=== PATIENT | female | born 2005 | race Caucasian/White ===

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

== ENCOUNTER 2024-01-17 17:40 | Emergency (ER) | payer OTHER, SELFPAY ==
[2024-01-17 17:48] VITALS: BP 101/79; PULSE 113; RESP 20; TEMP 37.4; O2SAT 99
--- NOTE | 2024-01-17 18:17 | ED.URI ---
HPI - URI/Sore Throat General Chief Complaint: Upper Respiratory Infection Stated Complaint: SORE THROAT/VOMITING/CONGESTION Time Seen by Provider: 01/17/24 17:58 Source: patient and RN notes reviewed Mode of arrival: ambulatory Limitations: no limitations History of Present Illness HPI Narrative: Patient presents today complaining of a 1 episode of vomiting, sore throat, nasal congestion, fever up to 100.2, with intermittent nausea. Symptoms began today. She has been able to keep down food and drink since the vomiting episode early this morning. Currently rates her pain 3/10 and has been taking DayQuil with some relief. Denies known sick contacts. Related Data Home Medications Medication Instructions Recorded Confirmed No Home Medications 01/17/24 01/17/24 Allergies Allergy/AdvReac Type Severity Reaction Status Date / Time tree nut Allergy Severe Anaphylaxis Verified 01/17/24 18:13 iohexol Allergy Swelling Verified 01/17/24 18:13 [From contrast - CT, X-RAY] Review of Systems Review of Systems: CONSTITUTIONAL: Denies body aches, chills, or sweats.+ fever EYES: Denies visual changes, redness, or discharge. ENT: Denies rhinorrhea, or otalgia.+ sore throat, congestion CARDIOVASCULAR: Denies chest pain, palpitations, or edema. RESPIRATORY: Denies cough or dyspnea. GASTROINTESTINAL: Denies abdominal pain, or diarrhea.+ nausea, vomiting GENITOURINARY: Denies dysuria or hematuria. SKIN: Denies rash, itching, or wounds. MUSCULOSKELETAL: Denies back pain, joint pain, or myalgia. NEUROLOGIC: Denies headache, numbness, tingling, or weakness. PSYCH: Denies depression or anxiety. PMFSH Comments At time of signature, I have reviewed and agree with nursing past medical, surgical, social and family history unless otherwise noted. Please see nursing chart for further information. There is no relevant family history pertinent to the presenting complaint Exam Narrative: GENERAL: Well-appearing, well-nourished, and in no acute distress. HEAD: Normocephalic, atraumatic. EYES: EOMI. No redness or drainage. Conjunctivae normal. ENT: Mucous membranes pink and moist. Nares congestive. No rhinorrhea. TMs normal bilaterally. Throat normal. Uvula midline. NECK: Normal AROM. Supple. No lymphadenopathy. CHEST: No respiratory distress. Clear to auscultation. HEART: Regular rate and rhythm. No murmur appreciated. EXTREMITIES: Normal range of motion. No edema. SKIN: Warm, dry, no rash. Capillary refill normal. Normal skin turgor. NEURO: No focal deficits. Alert and oriented x3. Gait steady. PSYCH: Normal affect. No signs of depression or anxiety. Course Course Level of Care: Express Care Visit Vital Signs Vital signs: Vital Signs Temperature 99.3 F 01/17/24 17:48 Pulse Rate 113 H 01/17/24 17:48 Respiratory Rate 20 01/17/24 17:48 Blood Pressure 101/79 01/17/24 17:48 Pulse Oximetry 99 01/17/24 17:48 Temperature 99.3 F 01/17/24 17:48 Pulse Rate 113 H 01/17/24 17:48 Respiratory Rate 20 01/17/24 17:48 Blood Pressure 101/79 01/17/24 17:48 Pulse Oximetry 99 01/17/24 17:48 Review MDM - URI/Sore Throat MDM Narrative Medical decision making narrative: Rapid strep negative. Culture pending. Symptoms likely viral in etiology. Patient declines prescription for antiemetic. Anticipatory guidance given. Differential Diagnosis Differential diagnosis: Likely upper respiratory infection, viral infection, pharyngitis and other (Strep throat) Lab Data Attestation: I reviewed the patient's lab results. Labs: Strep Screen Presumptive Negative *(Reference Range: Negative)* Critical Care Time Critical Care Time Critical Care Time: No Discharge Plan Discharge Clinical Impression: Viral syndrome Patient Disposition: Home, Self-Care Condition: Stable Instructions: Viral Syndrome (ED) Additional I
== END 2024-01-17 18:33 | disposition home or self-care (01) ==
PROVIDERS: Emergency Provider Nurse Practitioner; PCP Pediatrics
DX: B34.9 Viral infection, unspecified (principal)
CPT/HCPCS: 87081; 87880; 99213; G0463

== ENCOUNTER 2025-03-22 14:57 | Outpatient (CLI) | payer OTHER, SELFPAY ==
--- OUTSIDE RECORDS SUMMARY | 2025-03-22 15:03 | XMS_ITS | Clinical Summary ---
Author Organization [facility] [employer] Address [address] [place] [address] Care Team Providers Care Fire And Safety Helper Name Role Phone Mykel Hernandez MD Primary Care Provider [phone] Source Comments [facility],non-owned Affiliates and Associated Physician Practices is amultiple site organization consisting of ambulatory clinics and hospital sitesin [place], [place], [place] and [place]. This disclosure is being madepursuant to the Care Everywhere program and may not contain all information available regarding this patient. Last updated 18.[facility] [employer] Allergies Active Allergy Reactions Criticality Noted Date Comments Tree Nuts Rash Low 01/09/2011 Rash and vomiting; has Epi pen Medications * Be aware that medications may not be up to date on this document. Alwaysverify current medications with the patient. No known medications Active Problems Problem Noted Date Diagnosed Date Closed fracture of left distal radius 10/21/2018 Closed fracture of right distal radius 7 GERD (gastroesophageal reflux disease) 1 Abdominal pain 10/31/2010 Overview (06/23/2015): Weight loss 10/31/2010 Family History Medical History Relation Name Comments Anesthesia Reaction Father GERD - Gastroesophageal Reflux Disease Father rarely Cirrhosis Maternal Grandfather GERD - Gastroesophageal Reflux Disease Maternal Grandm other Anesthesia Reaction Mother GERD - Gastroesophageal Reflux Disease Mother GERD - Gastroesophageal Reflux Disease Paternal Grandm other Cirrhosis Paternal Uncle Anesthesia Reaction Sister Celiac Disease Neg Hx Crohn's Disease Neg Hx Ulcerative Colitis Neg Hx Relation Name Status Comments Father Alive Maternal Grandfather Maternal Grandmother Mother Alive Paternal Grandmother Paternal Uncle Sister Alive Social History Tobacco Use Types Packs/Day Years Used Date Smoking Tobacco: Never Smokeless Tobacco: Never Alcohol Use Standard Drinks/Week Comments No 0 (1 standard drink = 0.6 oz pur e alcohol) Comments Unknown Sex and Gender Information Value Date Recorded Sex Assigned at Not on file 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 Gender Identity Not on file Sexual Orientation Not on file Last Filed Vital Signs Vital Sign Reading Time Taken Comments Blood Pressure 118/78 12/02/2019 2:21 PM CDT Pulse 84 12/02/2019 2:21 PM CDT Temperature 37.2 C (98.9 F) 12/02/2019 2:21 PM CDT Respiratory Rate 16 12/02/2019 2:21 PM CDT Oxygen Saturation 98% 12/02/2019 2:21 PM CDT Inhaled Oxygen Concentration - - Weight 64 kg (141 lb) 12/02/2019 2:21 PM CDT Height 177.8 cm (5' 10) 12/02/2019 2:21 PM CDT Body Mass Index 20.23 12/02/2019 2:21 PM CDT Plan of Treatment Health Maintenance Due Date Last Done Comments HIV SCREENING 2019 HPV VACCINE (1 - 3-dose series) 2019 CHLAMYDIA/GONORRHEA SCREENING 2020 MENINGOCOCCAL (Group B) VACC INE SHARED DECISION-MAKING (1 of 2 - Standard) 2020 HEPATITIS C SCREENING 11/16/2022 DTAP/TDAP/TD VACCINES (1 - Tdap) 2023 HEPATITIS B VACCINE (1 of 3 - 19+ 3-dose series) 2023 COVID-19 VACCINE (1 - 2023-2 5 season) 2024 DEPRESSION SCREENING 09/23/2024 INFLUENZA VACCINE (Season Ended) 2025 ZOSTER VACCINE (1 of 2) 2054 HIB VACCINE Aged Out No longer eligi ble based on patient's age to complete this topic MENINGOCOCCAL GROUPS A/C/Y/W VACCINE Aged Out No longer eligible b ased on patient's age to complete this topic PNEUMOCOCCAL VACCINE Aged Out No long er eligible based on patient's age to complete this topic Insurance [employer] Care Teams Fire And Safety Helper Relationship Specialty Start Date End Date Mykel Hernandez MD [address] [place] [address] PCP - General 10/31/10
--- OUTSIDE RECORDS SUMMARY | 2025-03-22 15:03 | XMS_ITS | Clinical Summary ---
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 Operator Helper Name Role Phone Adam Hernandez MD Primary Care Provider Allergies Active Allergy Reactions Criticality Noted Date Comments Ibuprofen Other (See comments) Low 06/27/2022 Reaction: Tree Nut Other (See comments) Low 06/27/2022 Reaction: Tree Nuts Rash Medium 01/09/2011 Rash and vomiting; has Epi pen Medications EPINEPHrine 0.3 mg/0.3 mL auto-injection syringe 05/13/2022 Active Active Problems Problem Noted Date Diagnosed Date Closed fracture of left distal radius 10/21/2018 Closed fracture of right distal radius 7 Chronic tonsillitis 12/23/2015 Abdominal pain 10/31/2010 Overview (05/19/2022): GERD (gastroesophageal reflux disease) 1 Weight loss 10/31/2010 Atopic eczema 05/21/2008 Allergy to nuts 05/21/2008 Immunizations Immunization Administration Dates Next Due HPV9 09/03/2016,05/02/2016,02/28/2016 Influenza, Quadrivalent, Spl it, Preservative Free, Intramuscular 09/24/2018,09/03/2016 Influenza, Trivalent, IM (MDV) 08/14/2014 Meningococcal A,C,W,Y-TT (Aka Menquadfi) 021 Meningococcal MCV4P (Menactra) 02/28/2016 Tdap 02/28/2016 Surgical History Surgery Date Site/Laterality Comments TONSILECTOMY, ADENOIDECTOMY, BILATERAL MYRINGOTOMY AND TUBES Medical History Medical History Date Comments PANDAS (pediatric autoimmune neuropsychiatric disease associated with streptococcal infection) Family History Medical History Relation Name Comments Allergic rhinitis Father Family his tory of allergic rhinitis - (Added by TW Conv) Allergic rhinitis Mother Family his tory of allergic rhinitis - (Added by TW Conv) Relation Name Status Comments Father Alive Mother Alive Social History Tobacco Use Types Packs/Day Years Used Date Smoking Tobacco: Never Smokeless Tobacco: Never Comments Unknown Sex and Gender Information Value Date Recorded Sex Assigned at Not on file 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 Gender Identity Not on file Sexual Orientation Not on file Obstetrics History Last Filed Vital Signs Vital Sign Reading Time Taken Comments Blood Pressure 126/62 12/11/2024 9:42 AM CDT Pulse 111 12/11/2024 9:42 AM CDT Temperature 37 C (98.6 F) 05/19/2022 9:26 AM CDT Respiratory Rate 14 05/19/2022 9:26 AM CDT Oxygen Saturation 99% 12/11/2024 9:42 AM CDT Inhaled Oxygen Concentration - - Weight 70.8 kg (156 lb) 12/11/2024 9:42 AM CDT Height 179.1 cm (5' 10.5) 12/11/2024 9:42 AM CD T Body Mass Index 22.07 12/11/2024 9:42 AM CDT Plan of Treatment Health Maintenance Due Date Last Done Comments Depression Screening 2004 Hepatitis C Screening 2004 Varicella Vaccines (1 of 2 - 13+ 2-dose series) 2017 Meningococcal B Vaccine (1 o f 2 - Standard) 2020 Hepatitis B Screening 2022 Regular Well Visit/Exam 18-64 2022 Influenza Vaccine (Season Ended) 2025 09/24/2018, 09/03/2016, 08/14/2014 DTaP/Tdap/Td Vaccine (2 - Td or Tdap) 02/27/2026 02/28/2016 HPV Vaccines Completed 09/03/2016, 05/02/2016, 02/28/2016 Meningococcal Vaccine Completed 05/11/2021 , 02/28/2016 Pneumococcal vaccine <65 Aged Out No longer eligible based on patient's age to complete this topic Insurance CIGNA CIGNA CIGNA Care Teams Car Dumper Operator Helper Relationship Specialty Start Date End Date Adam Hernandez MD [address] [place], [place] [id number] PCP - General Pediatrics 05/25/22
--- OUTSIDE RECORDS SUMMARY | 2025-03-22 15:03 | XMS_ITS | Referral Summary ---
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
[2025-03-22 16:11] LABS: Beta HCG Quantitative < 2.39 mIU/ML
== END 2025-03-22 14:58 | disposition home or self-care (01) ==
LOC: ANHLAB 14:59
PROVIDERS: PCP Pediatrics; Visit Provider Obstetrics & Gynecology
DX: N92.6 Irregular menstruation, unspecified (principal)
CPT/HCPCS: 36415; 84702

== ENCOUNTER 2025-04-22 12:55 | Outpatient (CLI) | payer OTHER, SELFPAY ==
--- NOTE | ~2025-04-22 | MR_ITS ---
MRI of the abdomen: Clinical indication: Unicornuate uterus, abdominal pain. Technique: Coronal SSFSE ARC, WATER:coronal LAVA-FLEX, Coronal 2D FIESTA FatSat, Axial SSFSE BH ARC, Axial 3D DualEcho BH, Axial SSFSE-IR, Axial DWI b=500, Axial 2D FIESTA FatSat, pre and dynamic postco ntrast Axial LAVA ARC, postcontrast Coronal In and Opposed phase LAVA FLEX. Following intravenous adm inistration of 14 cc MultiHance gadolinium, T1-weighted fat-sat imaging was performed in the axial an d coronal planes. Findings: Gallbladder is unremarkable. The common bile duct is normal in course and caliber. No filli ng defects are seen within the CBD. No evidence of intrahepatic biliary ductal dilatation. The pancre atic duct is normal in size. Liver, spleen, pancreas, adrenals, kidneys appear normal. The aorta and the paraaortic regions appear normal. Impression: Unremarkable exam. Reviewed, dictated and finalized at location . Impression: Unremarkable exam.
--- NOTE | ~2025-04-22 | MR_ITS ---
MRI of the pelvis CLINICAL HISTORY: Unicornuate uterus, heavy menses TECHNIQUE: Sagittal T2 images, axial T1-weighted in phase and out of phase images, T2-weighted images , and T2 fat-sat images, and coronal T2-weighted images were performed. Following intravenous adminis tration of 14 cc MultiHance gadolinium, T1-weighted fat-sat imaging was performed in the axial and co andrew planes. IMPRESSION: Uterus is anteverted, possible unicornuate morphology extending towards left side. No junctional zone thickening. No suspicious myometrial mass or abnormal endometrial thickening. 3 cm probable right ov diane cyst present. Subcentimeter follicular cysts are present in the left ovary. Urinary bladder unremarkable. No ascites. No pelvic lymphadenopathy identified. Visualized bowel loop s are unremarkable. IMPRESSION: Suggestion of a unicornuate uterus, extending towards left side. 3 cm right ovarian cyst. Reviewed, dictated and finalized at [facility]. IMPRESSION: Uterus is anteverted, possible unicornuate morphology extending towards left si de. No junctional zone thickening. No suspicious myometrial mass or abnormal en dometrial thickening. 3 cm probable right ovarian cyst present. Subcentimeter f ollicular cysts are present in the left ovary. Urinary bladder unremarkable. No ascites. No pelvic lymphadenopathy identified. Visualized bowel loops are unremarkable.
== END 2025-04-22 12:56 | disposition home or self-care (01) ==
LOC: MICIMG 12:56
PROVIDERS: PCP Pediatrics; Visit Provider Obstetrics & Gynecology
DX: Q51.4 Unicornate uterus (principal); N83.201 Unspecified ovarian cyst, right side
CPT/HCPCS: 72197; 74183; A9577

== ENCOUNTER 2025-05-05 16:51 | Emergency (ER) | payer OTHER, SELFPAY ==
--- NOTE | 2025-05-05 16:52 | ED_ITS ---
HPI - General Adult General Chief complaint: Upper Respiratory Infection Stated complaint: fever, cough Time Seen by Provider: 05/05/25 16:52 Source: patient Mode of arrival: ambulatory Limitations: no limitations History of Present Illness HPI narrative: Pt is a 19 y/o female presenting with c/o fever, cough. She also reports burning sensation in chest with coughing, swallowing. Sx began 2 days ago. Tx initiated ACCOUNT PROCESSOR includes ibuprofen, tylenol. NO known exposure to COVID, flu,strep, PNA. No additional complaints. Related Data Home Medications ?Medication ?Instructions ?Recorded ?Confirmed ?Last Taken ?Type epinephrine 0.3 mg/0.3 mL subcut 01/29/25 03/23/25 Unknown History injection, auto-injector etonogestrel 68 mg subdermal 1 implant subdermal ONCE 03/23/25 03/23/25 Unknown History implant (Nexplanon) Allergies Allergy/AdvReac Type Severity Reaction Status Date / Time tree nut Allergy Severe Anaphylaxis Verified 05/05/25 17:05 iohexol (From contrast - CT, Allergy Swelling Verified 05/05/25 17:05 X-RAY) Review of Systems Review of Systems: CONSTITUTIONAL: Reports fever, denies body aches, chills, or sweats. EYES: Denies visual changes, redness, or discharge. ENT: Denies rhinorrhea, congestion, sore throat, or otalgia. CARDIOVASCULAR: reports burning sensation in chest with coughing, swallowing Denies chest pain, palpitations, or edema. RESPIRATORY: Reports cough denies dyspnea. GASTROINTESTINAL: Denies abdominal pain, nausea, vomiting, or diarrhea. GENITOURINARY: Denies dysuria or hematuria. SKIN: Denies rash, itching, or wounds. MUSCULOSKELETAL: Denies back pain, joint pain, or myalgia. NEUROLOGIC: Denies headache, numbness, tingling, or weakness. PSYCH: Denies depression or anxiety. All systems reviewed & are unremarkable except as noted in HPI and below PMFSH Past Medical History Medical History PANDAS (pediatric autoimmune neuropsychiatric disease associated with streptococcal infection) Surgical History Surgical History History of tonsillectomy Social History Social History (Reviewed 03/05/25 @ 11:02 by EDGARD Fritz Smoking status: Never smoker Alcohol intake: never Substance use: never Substance use type: does not use Current Housing: Decline to Answer Concerned About Future Housing: Decline to Answer Difficulty Paying Gas/Electric Bills: Decline to Answer Difficulty Paying for Meds: Decline to Answer Currently Unemployed: Decline to Answer Education: Decline to Answer Difficulty w/ Childcare or Family Care: Decline to Answer Living arrangements: with family Occupation/Education: student Gender identity (if verbalized by the patient): Female Sexual Orientation (if Verbalized by the Patient): Straight or Heterosexual Exam Narrative: GENERAL: Well-appearing, well-nourished, and in no acute distress. HEAD: Normocephalic, atraumatic. EYES: EOMI. No redness or drainage. Conjunctivae normal. ENT: Mucous membranes pink and moist. Nares clear. No rhinorrhea. TMs normal bilaterally. Throat normal. Uvula midline. NECK: Normal AROM. Supple. No lymphadenopathy. CHEST: No respiratory distress. Clear to auscultation. HEART: Tachycardic rate and regular rhythm. No murmur appreciated. Normal peripheral pulses. ABDOMEN: Soft, nontender, nondistended, normal active bowel sounds. MUSCULOSKELETAL: No bony tenderness. EXTREMITIES: Normal range of motion. No edema. SKIN: Warm, dry, no rash. Capillary refill normal. Normal skin turgor. NEURO: No focal deficits. Alert and oriented x3. Gait steady. PSYCH: Normal affect. No signs of depression or anxiety. Course Course Emergency Course: I offered to order a chest xray, she declined. strict go to ER precautions discussed at length. Level of Care: Express Care Visit Vital Signs Vital signs: Vital Signs Temperature 99.5 F 05/05/25 17:06 Pulse Rate 140 H 05/05/25 17:06 Respiratory Rate 16 05/05/25 17:06 Blood Pressure 132/70 05/05/25 17:06 Pulse Oximetry 99 05/05/25 17:06 Temperature 99.5 F 05/05/25 17:06 Pulse Rate 140 H 05/05/25 17:06 Respiratory Rate 16 05/05/25 17:06 Blood Pressure 132/70 05/05/25 17:06 Pulse Oximetry 99 05/05/25 17:06 Medical Decision Making Vital Signs Vital Signs: Vital Signs Temperature 99.5 F 05/05/25 17:06 Pulse Rate 140 H 05/05/25 17:06 Respiratory Rate 16 05/05/25 17:06 Blood Pressure 132/70 05/05/25 17:06 Pulse Oximetry 99 05/05/25 17:06 Temperature 99.5 F 05/05/25 17:06 Pulse Rate 140 H 05/05/25 17:06 Respiratory Rate 16 05/05/25 17:06 Blood Pressure 132/70 05/05/25 17:06 Pulse Oximetry 99 05/05/25 17:06 Lab Data Labs: Lab Results 05/05/25 Range/Units 17:35 POC Influenza A Ag Negative (Negative) POC Influenza B Ag Negative (Negative) POC SARS CoV-2 Ag Negative (Negative) Discharge Plan Discharge Clinical Impression: Viral infection, Tachycardia Patient Disposition: Home Condition: Stable Instructions: Antibiotic Form, Upper Respiratory Infection (DC) Patient Language: Guamanian Prescriptions: No Action epinephrine 0.3 mg/0.3 mL auto-injector subcut Nexplanon 68 mg implant 1 implant subdermal ONCE Rx Instructions: as a single dose prednisone 50 mg tablet 50 mg PO DAILY Qty: 3 0RF Rx Instructions: Patient to take 13 hours before procedure and then 7 hours before procedure then 1 hour before the procedure Benadryl Allergy 50 mg tablet 50 mg PO ONCE PRN (Reason: allergic reaction) Qty: 1 0RF Rx Instructions: take 1 hour before procedure Follow-up/Referrals: Mykel Parikh MD [Primary Care Provider] - 05/06/25 Time of Disposition: 17:47
[2025-05-05 17:06] VITALS: BP 132/70; PULSE 140; RESP 16; TEMP 37.5; O2SAT 99
[2025-05-05 17:37] LABS: EDCOVIDSCREEN Negative (Negative); EDINFLUASCREEN Negative (Negative); EDINFLUBSCREEN Negative (Negative)
[2025-05-05 17:52] VITALS: PULSE 116
== END 2025-05-05 17:52 | disposition home or self-care (01) ==
PROVIDERS: Emergency Provider Registered Nurse; PCP Pediatrics
DX: B34.9 Viral infection, unspecified (principal); R00.0 Tachycardia, unspecified; Z20.822 Contact with and (suspected) exposure to COVID-19; Z23 Encounter for immunization
CPT/HCPCS: 87426; 87804; 99212; G0463

== ENCOUNTER 2025-05-09 11:18 | Emergency (ER) | payer OTHER, SELFPAY ==
--- NOTE | ~2025-05-09 | XR_ITS ---
Clinical Indication: Cough, fever PA and lateral views of the chest: Comparison: 10/22/2015 Findings: There is medial right lower lobe consolidation. Left lung clear. Cardiomediastinal silhoue tte is within normal limits. Bones and soft tissues are unremarkable. Impression: Medial right lower lobe pneumonia. Reviewed, dictated and finalized at location . Impression: Medial right lower lobe pneumonia.
--- NOTE | 2025-05-09 11:21 | ED_ITS ---
HPI - URI/Sore Throat General Chief Complaint: Upper Respiratory Infection Stated Complaint: Cough/Fever Time Seen by Provider: 05/09/25 11:23 Source: patient, RN notes reviewed and old records reviewed Mode of arrival: ambulatory Limitations: no limitations History of Present Illness HPI Narrative: 19-year-old female presents to the [facility] with her mom. Reports fever that started 6 days ago. Was evaluated 2 days ago, negative flu and COVID at that time. States that she did have 103 fever this morning. Has been taken ibuprofen and Tylenol. Patient denies any chest pain, occasional shortness of breath-especially with deep breathing Related Data Home Medications ?Medication ?Instructions ?Recorded ?Confirmed ?Last Taken ?Type epinephrine 0.3 mg/0.3 mL 0.3 ml subcut PRN allergic rx 01/29/25 05/09/25 Unknown History injection, auto-injector etonogestrel 68 mg subdermal 1 implant subdermal ONCE 03/23/25 05/09/25 Unknown History implant (Nexplanon) iron 05/09/25 Unknown History Allergies Allergy/AdvReac Type Severity Reaction Status Date / Time tree nut Allergy Severe Anaphylaxis Verified 05/09/25 11:24 iohexol (From contrast - CT, Allergy Swelling Verified 05/09/25 11:24 X-RAY) Review of Systems Review of Systems: All systems reviewed & are unremarkable except as noted in HPI and below Constitutional: Constitutional: Reports as per HPI, Reports body ache(s) and Reports fever(s) ENT: Reports system reviewed and no additional complaints, except as documented Cardiovascular: Cardiovascular: Reports no additional cardiovascular complaints, Denies chest pain and Denies dyspnea Respiratory: Respiratory: Reports as per HPI, Denies chest congestion, Reports cough and Reports dyspnea Musculoskeletal: Musculoskeletal: Reports no additional musculoskeletal complaints Integumentary/Breasts: Skin/Breast: Reports system reviewed and no additional complaints, except as docu PMFSH Past Medical History Medical History PANDAS (pediatric autoimmune neuropsychiatric disease associated with streptococcal infection) Surgical History Surgical History History of tonsillectomy Social History Social History Smoking status: Never smoker Alcohol intake: never Substance use: never Substance use type: does not use Current Housing: Decline to Answer Concerned About Future Housing: Decline to Answer Difficulty Paying Gas/Electric Bills: Decline to Answer Difficulty Paying for Meds: Decline to Answer Currently Unemployed: Decline to Answer Education: Decline to Answer Difficulty w/ Childcare or Family Care: Decline to Answer Living arrangements: with family Occupation/Education: student Gender identity (if verbalized by the patient): Female Sexual Orientation (if Verbalized by the Patient): Straight or Heterosexual Comments At the time of my signature, I reviewed and agree with the nursing past medical, surgical, social, and family history. There is no relevant family history pertinent to the patient complaint. Exam Const: General: cooperative, no acute distress, well developed, alert, tired appearing, uncomfortable and well nourished Nutritional Appearance: well nourished Orientation/consciousness: patient oriented x3 Limitations: no limitations HENMT: Head: normal to inspection Ears: hearing grossly normal bilaterally, external ears normal, TM's normal bilaterally, EAC's normal, mastoids normal and no periauricular adenopathy Mouth: Yes Normal oral and palatal mucosa present, Yes lip normal, Yes tongue normal and Yes moist mucous membranes Throat: posterior oropharynx normal, uvula midline and no uvular edema Eyes: General: appearance normal, both eyes and all related structures Alignment and Position: alignment normal Neck: Neck: normal visual inspection, full ROM, no lymphadenopathy and no meningeal signs Chest: Chest palpation & inspection: normal inspection of the chest Resp: Effort & Inspection: normal respiratory effort and able to speak in complete sentences Auscultation: no crackles, no rales, no rhonchi, no whee zes and diminished lung sounds on the right in the lower lung mora Cardio: Rate: tachycardic Skin: General skin exam: normal color and no rashes or lesions noted Neuro: General: patient oriented x3, gait normal, moves all extremities and no meningeal signs Cognition (Neuro): normal cognition Speech: normal speech Gait exam (Neuro): Normal gait present Extrem: General: normal to inspection, full ROM, capillary refill normal and normal gait Psych: Appearance: grossly normal and well kempt Mental Status: mental status grossly normal Speech and movement: Normal speech and movement present and Clear speech present Affect: normal affect Attitude: cooperative Course Course Level of Care: Express Care Visit Vital Signs Vital signs: Vital Signs Temperature 98 F 05/09/25 11:26 Pulse Rate 110 H 05/09/25 11:26 Respiratory Rate 18 05/09/25 11:26 Blood Pressure 120/85 05/09/25 11:26 Pulse Oximetry 98 05/09/25 11:26 Temperature 98 F 05/09/25 11:26 Pulse Rate 110 H 05/09/25 11:26 Respiratory Rate 18 05/09/25 11:26 Blood Pressure 120/85 05/09/25 11:26 Pulse Oximetry 98 05/09/25 11:26 Reviewed MDM - URI/Sore Throat MDM Narrative Medical decision making narrative: Patient sitting in exam room. Patient is nontoxic, vitals are stable except pulse is mildly elevated at 110. Patient tested negative for COVID in flu on day 2 of symptoms on the . Still with cough, chest x-ray done, shows right lower lobe pneumonia Patient is appropriate for outpatient treatment with antibiotics, discussed close follow-up and strict signs and symptoms proceed to emergency room which post mom and patient verbalized understanding Discharge instructions reviewed with patient, as well as provided in writing per nursing staff. The instructions also include specific and strict return/GO TO THE ER as well as f/u information. All questions have been answered, and the patient deny any further questions with discharge and discharge plan. Some parts of this dictation were generated by voice recognition software and may contain typographical and/or grammatical inaccuracies. Differential Diagnosis Differential diagnosis: Likely upper respiratory infection, otitis media, sinusitis, viral infection, bronchitis, influenza, pharyngitis and other (Pneumonia) Imaging Data Radiologist's impression: Clinical Indication: Cough, fever PA and lateral views of the chest: Comparison: 10/22/2015 Findings: There is medial right lower lobe consolidation. Left lung clear. Cardiomediastinal silhouette is within normal limits. Bones and soft tissues are unremarkable. Impression: Medial right lower lobe pneumonia. Critical Care Time Critical Care Time Critical Care Time: No Discharge Plan Discharge Clinical Impression: Right lower lobe pneumonia Qualifiers: Pneumonia type: due to unspecified organism Qualified Code(s): J18.9 - Pneumonia, unspecified organism Patient Disposition: Home Condition: Stable Instructions: Antibiotic Form, Pneumonia (ED) Additional Instructions: Take both antibiotics as prescribed Stay hydrated with plenty of water, Gatorade, Pedialyte, ice pops in Jell-O Continue taking Motrin and Tylenol per package instructions Follow-up with primary care provider in 10-14 days If your symptoms get worse please proceed to the nearest emergency room Patient Language: Amharic Prescriptions: New amoxicillin-pot clavulanate 875-125 mg tablet 1 tablet PO Q12H Qty: 20 0RF azithromycin 250 mg tablet See Rx Instructions .ROUTE .COMPLEX Qty: 6 0RF Rx Instructions: take 500 mg today (day 1), then 250 mg for 4 days (days 2-5) No Action iron epinephrine 0.3 mg/0.3 mL auto-injector 0.3 ml subcut PRN Nexplanon 68 mg implant 1 implant subdermal ONCE Rx Instructions: as a single dose Benadryl Allergy 50 mg tablet 50 mg PO ONCE PRN (Reason: allergic reaction) Qty: 1 0RF Rx Instructions: take 1 hour before procedure Follow-up/Referrals: Mykel Parikh MD [Primary Care Provider] - 2 Weeks ([facility] care follow up ) Time of Disposition: 11:51
[2025-05-09 11:26] VITALS: BP 120/85; PULSE 110; RESP 18; TEMP 36.6; O2SAT 98
== END 2025-05-09 12:00 | disposition home or self-care (01) ==
PROVIDERS: Emergency Provider Nurse Practitioner; PCP Pediatrics
DX: J18.1 Lobar pneumonia, unspecified organism (principal)
CPT/HCPCS: 71046; 99213; G0463

== ENCOUNTER 2025-09-20 08:49 | Emergency (ER) | payer OTHER, SELFPAY ==
[2025-09-20 09:04] VITALS: BP 102/71; PULSE 114; RESP 16; TEMP 36.8; O2SAT 98
--- NOTE | 2025-09-20 09:08 | ED_ITS ---
HPI - Skin/Abscess/Foreign Bdy General Chief complaint: Skin/Abscess/Foreign Body Stated complaint: Hives/Nausea Time Seen by Provider: 09/20/25 09:10 Source: patient Mode of arrival: ambulatory Limitations: no limitations History of Present Illness HPI narrative: Meghan is a 19-year-old female patient presenting to the clinic today with complaints of nasal congestion, sore throat, hives, and nausea. She reports th is past week she has had cold symptoms. Has slight sore throat. History of recurrent strep infections. Developed hives and hand swelling last night. Took Benadryl and that helped with a highest but she still having a little swelling in her hands. Denies any chest pain or shortness of breath. No difficulty swallowing or tongue swelling. No new known environmental changes Related Data Home Medications ?Medication ?Instructions ?Recorded ?Confirmed ?Last Taken ?Type epinephrine 0.3 mg/0.3 mL 0.3 ml subcut PRN allergic r x 01/29/25 09/20/25 Unknown History injection, auto-injector iron 60 mg PO DAILY 05/09/2508/24 Unknown History etonogestrel 68 mg subdermal 1 implant subdermal ONCE 07/14/25 09/20/25 Unknown History implant (Nexplanon) Allergies Allergy/AdvReac Type Severity Reaction Status Date / Time tree nut Allergy Severe Anaphylaxis Verified 09/20/25 08:58 iohexol (From contrast - CT, Allergy Swelling Verified 09/20/25 08:58 X-RAY) Review of Systems Review of Systems: Pertinent positives per HPI. Patient denies any fever, chills, headache, visual changes, dizziness, shortness of breath, chest pain, palpitations, nausea, vomiting, diarrhea, constipation, abdominal pain, or any urinary issues. [facility] Past Medical History Medical History PANDAS (pediatric autoimmune neuropsychiatric disease associated with streptococcal infection) Surgical History Surgical History History of tonsillectomy Social History Social History Smoking status: Never smoker Alcohol intake: never Substance use: never Substance use type: does not use Current Housing: Decline to Answer Concerned About Future Housing: Decline to Answer Difficulty Paying Gas/Electric Bills: Decline to Answer Difficulty Paying for Meds: Decline to Answer Currently Unemployed: Decline to Answer Education: Decline to Answer Difficulty w/ Childcare or Family Care: Decline to Answer Living arrangements: with family Occupation/Education: student Gender identity (if verbalized by the patient): Female Sexual Orientation (if Verbalized by the Patient): Straight or Heterosexual Comments At the time of my signature, I reviewed and agree with the nursing past medical, surgical, social, and family history. There is no relevant family history pertinent to the patient complaint. Exam Narrative: General: Well-developed, well nourished, in no apparent distress Head: Normocephalic, atraumatic Eyes: Pupils equally round and reactive to light bilaterally, EOM intact, sclera and conjunctive clear, no discharge, lids normal Ears: TMs intact and clear, ear canals clear, no drainage, grossly hearing normal. Nose: Nares patent, clear discharge, no inflammation, no sinus tenderness. Mouth: Oral pharynx mildly red without lesions or masses, good dentition, MMM. Neck: Supple, trachea midline, no enlargement of anterior or posterior cervical nodes, no thyroid masses or goiter palpable. Cardio: Regular rate and rhythm, s1 and s2 normal, no murmur appreciated. Resp: Clear to auscultation bilaterally, no rhonchi, rales, wheezing or rubs. Integumentary: [place], warm, and dry, very faint red nonraised rash to arms and legs Course Course Level of Care: Express Care Visit Vital Signs Vital signs: Vital Signs Temperature 36.8 C 09/20/25 09:04 Pulse Rate 114 H 09/20/25 09:04 Respiratory Rate 16 09/20/25 09:04 Blood Pressure 102/71 09/20/25 09:04 Pulse Oximetry 98 09/20/25 09:04 Oxygen Delivery Room Air 09/20/25 09:04 Temperature 36.8 C 09/20/25 09:04 Pulse Rate 114 H 09/20/25 09:04 Respiratory Rate 16 09/20/25 09:04 Blood Pressure 102/71 09/20/25 09:04 Pulse Oximetry 98 09/20/25 09:04 Oxygen Delivery Room Air 09/20/25 09:04 [facility] Narrative Medical decision making narrative: At the time of visit patient is resting comfortably on the exam table. Patient appears to be nontoxic. Complaints of nasal congestion, sore throat, hives, and nausea. She reports this past week she has had cold symptoms. Has slight sore throat. History of recurrent strep infections. Developed hives and hand swelling last night. Took Benadryl and that helped with a highest but she still having a little swelling in her hands. Denies any chest pain or shortness of breath. No difficulty swallowing or tongue swelling. No new known environmental changes. On exam patient hives have mostly resolved. She reports she still having some itchiness. Oral pharynx mildly red, lung sounds are clear, heart rates regular rate and rhythm, TMs intact and clear. Strep test was ordered Labs: Strep test was positive in the clinic today. Plan: I suspect patient has rash/hives, nausea, and strep pharyngitis. Prescription for amoxicillin and Zofran was sent to the pharmacy. Continue Benadryl in january take Zyrtec daily. Supportive measures were discussed with the patient and they voiced understanding discharge instructions and agrees to treatment plan. Return precautions reviewed Differential Diagnosis Differential Diagnosis: Differential diagnostic considerations for upper respiratory infection include upper respiratory infection, croup, otitis media, sinusitis, viral infection, bronchitis, influenza, pharyngitis, strep, uvulitis. Differential diagnostic considerations for skin/abscess/foreign body issues include abscess of skin or subcutaneous tissue, viral exanthem, dermatophytosis, urticaria, herpes zoster, allergic reaction to drug, cellulitis, eczema, insect bites, impetigo, contact dermatitis, vasculitis. Lab Data Labs: Lab Results 09/20/25 Range/Units 09:24 POC Grp A Strep Screen Positive (Negative) Discharge Plan Discharge Clinical Impression: Acute urticaria, Nausea, Acute streptococcal pharyngitis Patient Disposition: Home Condition: Stable Instructions: Antibiotic Form, Urticaria (ED), Strep Throat (ED), Acute Nausea and Vomiting (DC) Additional Instructions: Strep test was positive in the clinic today. Change your toothbrush in 24 hours after initiation of the antibiotics. Increase fluids and stay well hydrated Take amoxicillin and ondansetron as directed May take 10 mg of Zyrtec daily. Avoid hot showers Avoid scratching as this can cause a secondary infection May take Benadryl 25-50mg every 6 hours as needed for itching/swelling. Follow up with your PCP in 3-5 days if symptoms persist or sooner if they worsen Go to the Emergency Room if symptoms worsen- fever, rash spreading with treatment ,shortness of breath, tongue swelling, drooling, or chest pain Patient Language: Azeri Prescriptions: New ondansetron HCl 8 mg tablet 8 mg PO Q8H 3 Days Qty: 10 0RF amoxicillin 875 mg tablet 875 mg PO Q12H 10 Days Qty: 20 0RF No Action iron 60 mg PO DAILY epinephrine 0.3 mg/0.3 mL auto-injector 0.3 ml subcut PRN Nexplanon 68 mg implant 1 implant subdermal ONCE Rx Instructions: as a single dose Benadryl Allergy 50 mg tablet 50 mg PO ONCE PRN (Reason: allergic reaction) Qty: 1 0RF Rx Instructions: take 1 hour before procedure Follow-up/Referrals: Mykel Parikh MD [Primary Care Provider, Pediatrics] Time of Disposition: 09:10 Quality NIHSS Nursing Documentation ED NIHSS nursing documentation: reviewed/agree
[2025-09-20] MEDS: ONDANSETRON HCL ODT 4 MG TABLET 8 MG SUBLINGUAL (09:13)
[2025-09-20 09:26] LABS: EDSTREPNEGPOS1 Positive (Negative)
== END 2025-09-20 09:35 | disposition home or self-care (01) ==
PROVIDERS: Emergency Provider Nurse Practitioner Family; PCP Pediatrics
DX: J02.0 Streptococcal pharyngitis (principal); L50.9 Urticaria, unspecified; D89.89 Other specified disorders involving the immune mechanism, not elsewhere classified
CPT/HCPCS: 87880; 99213; A9270; G0463